=== PATIENT | female | born 2000 | race Caucasian/White ===

== ENCOUNTER 2021-07-02 22:02 | Emergency (ER) | payer BC ==
--- NOTE | 2021-07-02 22:14 | EDM.PDOC ---
ED HPI GENERAL MEDICAL PROBLEM - General Chief Complaint: Back Pain or Injury Stated Complaint: BACK PAIN Time Seen by Provider: 07/02/21 22:04 - History of Present Illness INITIAL COMMENTS - FREE TEXT/NARRATIVE: 20-year-old female with a history of back issues presents with acute severe lower back pain radiating to the bilateral legs. Patient states that she was kneeling and may have bent or twisted she is not sure she had a pop and a sudden pain in her lower back with radiation into the legs mom gave her 800 of ibuprofen but pain persisted and EMS was called. Patient was given some medications in route. Patient now complains of severe lower back pain with radiation to the right lower quadrant and into the bilateral legs that worsens with any movement and she is most comfortable laying flat with her hips and knees flexed. No fevers or chills no nausea or vomiting patient was in her normal state of health prior to this. Patient's been managing her chronic back pain with a neuropathic chiropractic. lower back Pain Score (Numeric/FACES): 7 - Related Data Allergies Allergy/AdvReac Type Severity Reaction Status Date / Time histamines Allergy Other Uncoded 07/02/21 22:26 Home Meds: Home Meds methylPREDNISolone [Medrol] 4 mg PO ASDIRECTED #1 dosepk 07/02/21 [Rx] ED ROS GENERAL - Review of Systems Review Of Systems: See Below Free Text/Narrative/Comment: General: No fever. Skin: No rash. Eyes: No vision problems. ENT: No sore throat. Neck: No neck stiffness. Respiratory: No shortness of breath. Cardiac: No chest pain. Gastrointestinal: No nausea, vomiting or abdominal pain. Urinary: No dysuria. Musculoskeletal: Per HPI Neurologic: No headache. ED EXAM, GENERAL - Physical Exam Exam: See Below Free Text/Narrative:: General Appearance: No acute distress, appears comfortable Skin: No rash HEENT: Normocephalic/atraumatic, sclera anicteric, mucous membranes moist Neck: Normal range of motion Chest and Lungs: Bilateral breath sounds, clear to auscultation Cardiovascular: Regular rate and rhythm, no murmur Abdomen: Soft, non-tender Back: No midline tenderness or step-off Musculoskeletal: No edema or tenderness Neurologic: Awake, alert, no obvious deficits, patient with some poorly localized nonspecific bilateral lower extremity numbness patient has give way weakness in bilateral ankles knees and hips Psychiatric: Appropriate, cooperative Course - Vital Signs Last Recorded V/S: Last Vital Signs Temp 97.8 F 07/02/21 22:26 Pulse 70 07/02/21 23:37 Resp 18 07/02/21 23:37 BP 114/55 L 07/02/21 23:37 Pulse Ox 97 07/02/21 23:37 - Orders/Labs/Meds Orders: Active Orders 24 hr Category Date Time Status predniSONE Med 07/02/21 23:48 Once 20 mg PO ONETIME ONE Meds: Medications Discontinued Medications Generic Name Dose Route Start Last Admin Trade Name Jacey PRN Reason Stop Dose Admin Diazepam 5 mg 07/02/21 22:11 07/02/21 22:37 Diazepam 10 Mg/2 Ml Syringe IVPUSH 07/02/21 22:12 5 mg ONETIME ONE Administration Departure - Departure Time of Disposition: 23:34 Disposition: Home, Self-Care 01 Condition: Good Clinical Impression: Acute back pain - Discharge Information *PRESCRIPTION DRUG MONITORING PROGRAM REVIEWED*: Not Applicable *COPY OF PRESCRIPTION DRUG MONITORING REPORT IN PATIENT [place]TT[place]: Not Applicable Prescriptions: methylPREDNISolone [Medrol] 4 mg PO ASDIRECTED #1 dosepk Instructions: Acute Back Pain, Adult Referrals: PCP,None [Primary Care Provider] - Forms: ED Department Discharge Additional Instructions: A prescription form for Medrol Dosepak has been sent to the pharmacy. You have the Mitchell tablets that you were given tonight as well for breakthrough pain if you need them. I encourage you to follow-up with your doctors when you get home. The following information is given to patients seen in the emergency department who are being discharged to home. This information is to outline your options for follow-up care. We provide all patients seen in our emergency department with a follow-up referral. The need for follow-up, as well as the timing and circumstances, are variable depending upon the specifics of your emergency department visit. If you don't have a primary care physician on staff, we will provide you with a referral. We always advise you to contact your personal physician following an emergency department visit to inform them of the circumstance of the visit and for follow-up with them and/or the need for any referrals to a consulting specialist. The emergency department will also refer you to a specialist when appropriate. This referral assures that you have the opportunity for follow-up care with a specialist. All of these measure are taken in an effort to provide you with optimal care, which includes your follow-up. Under all circumstances we always encourage you to contact your private physician who remains a resource for coordinating your care. When calling for follow-up care, please make the office aware that this follow-up is from your recent emergency room visit. If for any reason you are refused follow-up, please contact the [facility] Emergency Department at and asked to speak to the emergency department charge nurse. Sepsis Event Note (ED) - Focused Exam Vital Signs: Vital Signs Temp Pulse Resp BP Pulse Ox 07/02/21 23:37 70 18 114/55 L 97 07/02/21 22:26 97.8 F 83 18 126/63 96 - My Orders Last 24 Hours: My Active Orders 07/02/21 23:48 predniSONE 20 mg PO ONETIME ONE - Assessment/Plan Last 24 Hours: My Active Orders 07/02/21 23:48 predniSONE 20 mg PO ONETIME ONE Assessment:: 20-year-old female present with signs and symptoms that are most consistent with acute exacerbation of chronic back pain. I do think the severity of her pain and muscle spasms are likely contributing to the lower extremity numbness and weakness. Patient is already gotten anti-inflammatories. Will provide 5 of IV Valium and reassess. 2330: Patient symptoms have improved from 10 out of 10 to 4 out of 10. Patient has intact sensation in the genital region this exam was conducted with astrobiologist present. I do not have concern for cord compression or cauda equina at this point. We will provide a dose of prednisone here and a prescription for Medrol Dosepak as well as a few Mitchell tablets. Patient will follow up with her doctors at home in order. Return precaution discussed and understood.
[2021-07-02] MEDS ORDERED: predniSONE 20 MG Tab PO ONE (23:48)
== END 2021-07-03 | disposition home or self-care (01) ==
LOC: EDBD 22:02 → MW.ED 22:02
DX: M54.5 Low back pain (principal); Z88.8 Allergy status to other drugs, medicaments and biological substances
CPT/HCPCS: 96374; 99283; A9270; J3360

== ENCOUNTER 2022-02-02 12:39 | Emergency (ER) | payer BC, OTHER ==
[2022-02-02 13:34] LABS: BLOOD UREA NITROGEN,BUN 8 mg/dL (7.0-18.0); CARBON DIOXIDE,CO2 25.7 mmol/L (21.0-32.0); CHLORIDE,CL 103 mmol/L (98-107); GLUCOSE RANDOM 86 mg/dL (74-106); POTASSIUM,K 3.6 mmol/L (3.5-5.1); SODIUM,NA 139 mmol/L (136-145)
[2022-02-02] MEDS ORDERED: Sulfamethoxazole/Trimethoprim 800-160 MG Tab PO ONE (13:43)
== END 2022-02-02 14:00 | disposition home or self-care (01) ==
LOC: MW.ED 12:39
DX: N93.8 Other specified abnormal uterine and vaginal bleeding (principal); N39.0 Urinary tract infection, site not specified; Z20.822 Contact with and (suspected) exposure to COVID-19
CPT/HCPCS: 36415; 80053; 81001; 81025; 85025; 87086; 99284; A9270; 87088; 87186; 99283

== ENCOUNTER 2023-05-18 11:54 | Emergency (ER) | payer OTHER, BC ==
[2023-05-18] MEDS ORDERED: Cyclobenzaprine 10 MG Tab PO ONE (12:30)
[2023-05-18] MEDS ORDERED: Lidocaine 4% 1 each Patch TOP SCH (12:45)
== END 2023-05-18 14:11 | disposition home or self-care (01) ==
LOC: MW.ED 11:54
DX: S80.01XA Contusion of right knee, initial encounter (principal); W22.8XXA Striking against or struck by other objects, initial encounter
CPT/HCPCS: 73562; 99283; A9270